=== PATIENT | male | born 1990 | race Caucasian/White ===

== ENCOUNTER 2017-12-28 13:14 | Observation (INO) | payer OTHER ==
[2017-12-28] MEDS ORDERED: ONDANSETRON 4 MG/2 ML VIAL IVP ONE (13:48)
[2017-12-28] MEDS ORDERED: ONDANSETRON 4 MG/2 ML VIAL ONE ×2 (13:49→16:49)
--- NOTE | 2017-12-28 13:54 | EDPHY ---
General - History Smoking Status: Never smoked Time Seen by Provider: 12/28/17 13:50 Narrative: CHIEF COMPLAINT: Rectal pain, testicular pain HISTORY OF PRESENT ILLNESS: Patient complains of 6 days history of testicular pain and 6 days history of rectal pain. This is a severe rectal pain and rcor-cc-[id number] testicular pain. They have been constant duration. Worse with Valsalva and bowel movement. The left testicular pain worsened this morning and now radiates down the leg. He has had no constipation. One episode of diarrhea. No bloody emesis. No nausea or vomiting. Some painful urination at time. No difficulty urinating. No blood in the urine. No flank pain. No upper abdominal pain. Denies inserting anything into the anus and denies any anal intercourse. He presented to Urgent Care earlier today with a performed a rectal exam and urinalysis. They were concerned for possibility of rectal abscess, thus they sent him to our facility for higher level of care. No other associated complaints or modifying factors. REVIEW OF SYSTEMS: Ten systems reviewed and are negative unless otherwise noted in the HPI PCP: Dr. López SPECIALISTS: None PAST MEDICAL HISTORY: Anxiety. Questionable diagnosis of irritable bowel syndrome PAST SURGICAL HISTORY: No recent surgeries. Colonoscopy within the past year with benign polyps. SOCIAL HISTORY: Nonsmoker. Occasional marijuana use. No alcohol use. Lives and works here locally. Accompanied by his spouse FAMILY HISTORY: Noncontributory EXAMINATION General Appearance: Alert, no distress. Lying on his right side. Head: normocephalic, atraumatic Eyes: Pupils equal and round, no conjunctival pallor or injection ENT, Mouth: Mucous membranes moist Neck: Normal inspection, supple, non-tender Respiratory: Lungs are clear to auscultation. No wheeze, rhonchi or crackles Cardiovascular: Regular rate and rhythm. No murmur Gastrointestinal: Abdomen is soft and nondistended. No tenderness in any quadrant. No tympany. No rigidity. No guarding. No CVA tenderness. Rectal exam: No external hemorrhoids or lesions. Normal tone. No mass. No bleeding. exam: Circumcised penis. No drainage from the meatus. No balanitis. Normal appearing testicles with symmetric cremasteric. No fluctuance. No crepitus. No necrosis. Neurological: A&O, nonfocal, normal gait Skin: Warm and dry, no rash. No petechiae or purpura. No cellulitis Extremities: Nontender, no pedal edema Psychiatric: Mood and affect normal DIFFERENTIAL DIAGNOSES: Including but not limited to rectal abscess, hemorrhoids, MDM: 1:50 p.m. Rectal testicular pain of 6 days duration. Abdominal exam is benign. He cannot tolerated digital rectal exam at this time, thus I have ordered pain medication 1st. I ordered an ultrasound of the testicles prior to my examination rule out torsion, although I have a very low clinical suspicion of this. He has no other abnormality on exam. Laboratory studies been ordered. IV is being placed with IV medication for pain. 2:50 p.m. Notified by radiologist Dr. Reed. Normal appearance on ultrasound of testicles. No evidence of torsion. Symmetric blood flow. I have re-evaluated the patient. He still complained of significant pain at this time. I have ordered CT scan of the pelvis and further pain medication. 3:10 p.m. Case discussed with radiologist Dr. Reed. There is perirectal abscess on the patient's left side as documented. No other acute findings. I have notified the patient and paged the general surgeon. He is NPO of all solids today. He did have water intake less than 2 hr ago. 3:20 p.m. I discussed the case with Dr. Mckeon. He will come evaluate the patient in the emergency department. 3:[address] Mckeon is in the department to evaluate the patient. We have reviewed the CT scan and his laboratory studies together. We discussed surgical intervention and that the patient be admitted to his service. He is admitted to his service in stable condition. Further IV fluid has been ordered at his request. SUPERVISION: Patient was independently examined, but I discussed the case with my secondary supervising physician Dr. Zuñiga ([facility]) Medical Decision Making: I did not see this patient while he was in the emergency department. However his care was discussed with the PA while the patient was in the department. I agree with treatment plan and management (Clive Zuñiga) - Objective Vital Signs: Initial Vital Signs Temperature (C) 98.6 F 12/28/17 13:17 Heart Rate 79 12/28/17 13:17 Respiratory Rate 20 12/28/17 13:17 Blood Pressure 118/89 H 12/28/17 13:17 O2 Sat (%) 97 12/28/17 13:17 O2 Delivery Mode Room Air Allergies/Adverse Reactions: No Known Allergies Allergy (Verified 12/28/17 13:16) Home Medications: Medication Instructions Recorded Acetaminophen [Tylenol 325mg (*)] 325 - 650 mg PO Q6 PRN 12/28/17 Propranolol HCl [Inderal 10mg (*)] 10 mg PO DAILY PRN 12/28/17 Laboratory Results: Laboratory Results 12/28/17 14:00 12/28/17 14:00 Medications Given: Acetaminophen (Tylenol) 1,000 mg PO Q8H SYLVIA Stop: 06/26/18 16:59 Last Admin: 12/29/17 03:35 Dose: Not Given Lactated Ringer's (Lr) 1,000 mls @ 100 mls/hr IV CONT SYLVIA Stop: 12/29/17 16:59 Last Admin: 12/29/17 05:17 Dose: 1,000 mls Ondansetron HCl (Zofran) 4 mg IVP Q4HRS PRN PRN Reason: Nausea/Vomiting, Can't Take PO Stop: 06/26/18 16:47 Last Admin: 12/28/17 20:03 Dose: 4 mg Psyllium Hydrophilic Mucilloid (Metamucil/Konsyl) 2 each PO BID SYLVIA Stop: 06/26/18 20:59 Last Admin: 12/28/17 20:45 Dose: 2 each Discontinued Medications Ertapenem (Invanz) 1 gm IV EDNOW ONE PRN Reason: Protocol Stop: 12/28/17 15:20 Last Admin: 12/28/17 15:31 Dose: 1 gm Hydromorphone HCl (Dilaudid) 1 mg IVP EDNOW ONE Stop: 12/28/17 14:52 Last Admin: 12/28/17 15:53 Dose: 1 mg Sodium Chloride (Ns) 1,000 mls @ 0 mls/hr IV EDNOW ONE; Wide Open PRN Reason: Protocol Stop: 12/28/17 14:52 Last Admin: 12/28/17 15:30 Dose: 1,000 mls Sodium Chloride (Ns) 1,000 mls @ 0 mls/hr IV EDNOW ONE; Wide Open PRN Reason: Protocol Stop: 12/28/17 15:46 Last Admin: 12/28/17 16:19 Dose: 1,000 mls Lactated Ringer's (Lr) 1,000 mls @ 0 mls/hr IV ONCE ONE PRN Reason: Per Protocol Stop: 12/28/17 16:38 Last Admin: 12/28/17 22:29 Dose: Not Given Midazolam HCl (Versed) 2 mg IVP ONCALL ONE Stop: 12/28/17 16:27 Last Admin: 12/28/17 17:08 Dose: 2 mg Morphine Sulfate (Morphine) 4 mg IVP EDNOW ONE Stop: 12/28/17 13:49 Last Admin: 12/28/17 13:57 Dose: 4 mg Morphine Sulfate (Morphine) 4 mg IVP EDNOW ONE Stop: 12/28/17 14:23 Last Admin: 12/28/17 14:27 Dose: 4 mg Ondansetron HCl (Zofran) 4 mg IVP EDNOW ONE Stop: 12/28/17 13:49 Last Admin: 12/28/17 13:56 Dose: 4 mg Departure - Departure Disposition: [facility] Clinical Impression: Caty-rectal abscess Condition: Good
[2017-12-28 14:12] LABS: PLATELET COUNT 224 10^3/uL (150-400)
[2017-12-28] MEDS ORDERED: NS 1,000 ML IV ONE ×2 (14:51→15:45)
[2017-12-28] MEDS ORDERED: HYDROmorphONE/DILAUDID 1 MG/ML INJ IVP ONE (14:51)
[2017-12-28] MEDS ORDERED: IOPAMIDOL (ISOVUE-300) 100 ML BTL ONE (14:52)
[2017-12-28] MEDS ORDERED: ERTAPENEM 1 GM VIAL IV ONE (15:19)
[2017-12-28] MEDS ORDERED: HYDROmorphONE/DILAUDID 2 MG/ML INJ ONE ×2 (15:44→16:48)
[2017-12-28] MEDS ORDERED: ONDANSETRON 4 MG/2 ML VIAL IVP PRN ×2 (16:26→16:48)
[2017-12-28] MEDS ORDERED: fentaNYL 100 MCG/2 ML INJ IVP PRN (16:26)
[2017-12-28] MEDS ORDERED: MIDAZOLAM 2 MG/2 ML VIAL IVP ONE (16:26)
[2017-12-28] MEDS ORDERED: HYDROmorphONE/DILAUDID 2 MG/ML INJ IVP PRN (16:26)
[2017-12-28] MEDS ORDERED: ALBUTEROL 3 ML DEYVIAL IH PRN (16:26)
[2017-12-28] MEDS ORDERED: NALOXONE HCL 0.4 MG/ML INJ IVP PRN (16:26)
--- NOTE | 2017-12-28 16:28 | PDANEPAE ---
ANE History of Present Illness Perirectal abscess ANE Past Medical History - Cardiovascular History Hx Hypertension: No - Pulmonary History Hx Oxygen in Use at Home: No - Endocrine History Hx Diabetes: No ANE Review of Systems Review of Systems: - Exercise capacity Exercise capacity: >=4 METS ANE Patient History - Allergies Allergies/Adverse Reactions: No Known Allergies Allergy (Verified 12/28/17 13:16) - Home Medications Home Medications: Acetaminophen [Tylenol 325mg (*)] 325 - 650 mg PO Q6 PRN 12/28/17 [Last Taken 09:00] Propranolol HCl [Inderal 10mg (*)] 10 mg PO DAILY PRN 12/28/17 [Last Taken 1 Week Ago ~12/21/17] - Smoking Hx Smoking Status: Never smoked ANE Labs/Vital Signs - Labs Result Diagrams: 12/28/17 14:00 12/28/17 14:00 - Vital Signs Blood Pressure: 125/78 Heart Rate: 89 Respiratory Rate: 16 O2 Sat (%): 100 Height: 177.8 cm Weight: 79.379 kg ANE Physical Exam - Airway Neck exam: FROM Mallampati Score: Class 2 - Pulmonary Pulmonary: clear to auscultation - Cardiovascular Cardiovascular: regular rate and rhythym - ASA Status ASA Status: II ANE Anesthesia Plan Anesthesia Plan: GA w LMA
[2017-12-28] MEDS ORDERED: LR 1,000 ML IV ONE (16:37)
[2017-12-28] MEDS ORDERED: PROPOFOL 200 MG/20 ML VIAL ONE (16:46)
[2017-12-28] MEDS ORDERED: HYDROmorphone HCL/NS 0.5 MG/ML SYR IVP PRN (16:48)
[2017-12-28] MEDS ORDERED: RANITIDINE 50 MG/2 ML VIAL ONE (16:49)
[2017-12-28] MEDS ORDERED: DEXAMETHASONE 4 MG/ML VIAL ONE (16:49)
--- NOTE | 2017-12-28 16:54 | GDS ---
[f rep st] TRANSFER SUMMARY ADMITTING DIAGNOSIS: Anterior perirectal abscess. HISTORY: The patient is a 27-year-old male. He recalls passing hard stool in the last 2 weeks. He had onset of pain 6 days ago, which became dramatically worse today, prompting his presentation for evaluation in the emergency room. Note is made that he has irritable bowel syndrome and had a colonoscopy and upper endoscopy approximately 1 month ago. Benign polyps were identified. He denies rectal manipulation. He has had a fissure in the past. There is no history of Crohn disease. PAST MEDICAL HISTORY: He smoked from ages 19 to 23 at a half pack a day. He does drink approximately 1-2 drinks per month. He has no known drug allergies. He does take propranolol 10 mg p.r.n. anxiety. He has only had wisdom tooth extraction in addition to the upper and lower endoscopy mentioned above. No history of rheumatic fever, tuberculosis, hepatitis, or transfusions. HIV is negative. REVIEW OF SYSTEMS: He wears lenses for visual correction. As mentioned above, he has had a rectal fissure in the past. No limits on his activities and no history of steroid use. FAMILY HISTORY: His mother is 61 years old, alive and well. His father is 56; he has had multiple coronary stents and those were first placed when he was in his late 40s. Patient has an older sister who is 34 years old and obese. There is no history of bleeding disorders, clotting disorders, difficulty with anesthesia in the patient's family. PHYSICAL EXAMINATION: GENERAL: He is awake and alert, in no acute distress. HEENT: His skull is normocephalic and atraumatic. NEUROLOGIC: He is oriented x3. There are no focal lateralizing neurologic findings. NECK: No carotid bruits. Thyroid not enlarged. No cervical, supraclavicular, axillary, or inguinal lymphadenopathy. BACK: Unremarkable. LUNGS: Clear to auscultation. CARDIAC: S1, S2 normal. No split of S2. Without murmurs, rubs, or gallops. ABDOMEN: Soft and nontender. Rectal examination is not performed. DIAGNOSTICS: CT does show an anterior perirectal abscess. His white count is 10,000 with 78% neutrophils. PLAN: I will plan to examine him under anesthesia, I and D his perirectal abscess, and perform a fistulotomy if a fistulous tract is found to be present. The patient understands the complications of recurrence and/or transient fecal incontinence. He understands he may need a repair of his sphincter if he does have the problems with the transient fecal incontinence. He and his understand the procedure as presented and agree to proceed as outlined. /[id number]/MODL MTDD
--- NOTE | 2017-12-28 17:28 | POSTOPPROG ---
Post Op Note Date of Operation: 12/28/17 Surgeon: Kaleb Mckeon Pre-op Diagnosis: anterior perirectal abscess Post-op Diagnosis: abscess, hemorrhoids Indication: anterior perirectal abscess Findings: rectal purulence ( cultured) without obvious source Inf/Abcess present in the surg proc area at time of surgery?: Yes Depth: Deep Incisional (Fascial) EBL: Minimal Total fluids administered: 500 Complications: none
--- NOTE | 2017-12-28 17:35 | POSTANESTH ---
Post Anesthetic Evaluation Cardiovascular Status: Normal, Stable Respiratory Status: Normal, Stable Level of Consciousness/Mental Status: Mildly Sleepy, Arousable Pain Control: Adequate, Prn Tx Ordered Nausea/Vomiting Control: Adequate, Prn Tx Ordered
--- NOTE | 2017-12-28 17:49 | GOP ---
[f rep st] OPERATIVE REPORT DATE OF OPERATION: SURGEON: Kaleb Mckeon MD PREOPERATIVE DIAGNOSIS: Anterior perirectal abscess. POSTOPERATIVE DIAGNOSIS: Abscess of uncertain location. PROCEDURE PERFORMED: Examination under anesthesia. FINDINGS: Abscess ( that drained spontaneously into the rectum ) without obvious cavity DESCRIPTION OF PROCEDURE: The patient is placed on the operating table in supine position. After induction of adequate general endotracheal anesthesia, he is placed in lithotomy position. Perineum is carefully clipped, prepped, and draped. A surgical time-out was carried out and agreed to by all members of the operative staff. An anoscope was carefully passed. Purulent fluid is identified in the rectum, but no distinct abscess source can be palpated or identified. The purulence was carefully cultured. I opted not to make an incision without an obvious site to drain. A perineal pack is placed. He is transferred to recovery in stable and satisfactory condition. He will be treated with IV antibiotics. Further surgery may become necessary. /[id number]/MODL MTDD
[2017-12-28] MEDS: LR 1,000 ML IV SCH (20:03)
[2017-12-28] MEDS: PSYLLIUM METAMUCIL 1 PKT PO SCH (20:45)
[2017-12-28] MEDS: ACETAMINOPHEN 500 MG TAB PO SCH (22:28)
[2017-12-29] MEDS: ACETAMINOPHEN 500 MG TAB PO SCH ×3 (03:35→18:32)
[2017-12-29 04:31] LABS: PLATELET COUNT 229 10^3/uL (150-400)
[2017-12-29] MEDS: LR 1,000 ML IV SCH (05:17)
[2017-12-29] MEDS ORDERED: HYDROCODONE/APAP 5/325 TAB PO PRN (09:19)
[2017-12-29] MEDS: PSYLLIUM METAMUCIL 1 PKT PO SCH ×2 (09:25→20:49)
[2017-12-29] MEDS: ERTAPENEM 1 GM VIAL IV SCH (09:26)
--- NOTE | 2017-12-29 10:01 | ASMTLACE ---
LACE Length of stay for Answers: 1 day current admission Acuity / Level of Answers: No Care: Did the patient have an inpatient admission? # of Emergency department Answers: 1-2 visits in the last 6 months Score: 2 Date Signed: 12/29/2017 10:01 AM Electronically Signed By:Ayse Diaz LCSW
--- NOTE | 2017-12-29 10:23 | ASMTCMCOM ---
CM Note CM Note Notes: Pt. is a 27-year-old man admitted for a blake-rectal abscess. Pt. had surgery w/ Dr. Mckeon. Hx. IBS, benign polyps, and smoking. Pt. currently on IV antibiotics, but likely will not need IVs at d/c per RN. Anticipate independent d/c when ready. CM available should d/c POC change. Date Signed: 12/29/2017 10:22 AM Electronically Signed By:Ayse Diaz LCSW
--- NOTE | 2017-12-29 10:37 | SOAPPROG ---
SOAP Progress Note Assessment/Plan: Assessment: s/p EUA, spontaneous drainage anterior blake-rectal abscess per Dr. Mckeon appears clinically stable post op with mild leukocytosis Plan:continue IV antibiotics/stop IV fluids/advance diet increase activity transition to po antibiotics next 24-48 hours and complete course of treatment at home 12/29/17 10:35 Subjective: feeling better/able to void post op has not tried to eat since surgery Objective: Vital Signs Temp Pulse Resp BP Pulse Ox 36.8 C 89 16 110/73 95 12/29/17 09:24 12/29/17 09:16 12/29/17 09:16 12/29/17 09:16 12/29/17 09:16 Microbiology 12/28/17 17:12 Gram Stain - Final Buttock - Eswab Laboratory Results 12/29/17 04:16 12/28/17 12/29/17 12/30/17 05:59 05:59 05:59 Intake Total 2560 Balance 2560 Physical Exam - Physical Exam General Appearance: mild distress Respiratory: lungs clear Cardiac/Chest: regular rate, rhythm, tachycardia Abdomen: non-tender, soft Male Genitalia: deferred Rectal: deferred Neuro/Psych: alert, normal mood/affect, oriented x 3 ICD10 Worksheet Patient Problems: Problems Problem Status Onset Blake-rectal abscess Acute
[2017-12-29 12:28] LABS: GC AMPLIFICATION GENPROBE NEGATIVE (NEGATIVE)
[2017-12-29] MEDS: SENNOSIDES/DOCUSATE SODIUM TAB PO SCH ×2 (14:19→20:49)
[2017-12-29 15:32] VITALS: RESP 16
[2017-12-30] MEDS: ACETAMINOPHEN 500 MG TAB PO SCH ×2 (00:21→08:24)
[2017-12-30 04:53] LABS: PLATELET COUNT 237 10^3/uL (150-400)
[2017-12-30 05:30] VITALS: BP 109/59; PULSE 77; TEMP 97.8; O2SAT 95
--- NOTE | 2017-12-30 07:27 | SOAPPROG ---
SOAP Progress Note Assessment/Plan: 12/30/17 07:24 PAD#2 & POD#2 Assessment: Doing quite well. Eating and moving bowels. WBC now normal. C&S still pending. Gram Positive organisms seen Plan: Change to Augmentin Tx as out patient Subjective: No complaints. Notes stool soft Objective: Vital Signs Temp Pulse Resp BP Pulse Ox 36.6 C 77 16 109/59 L 95 12/30/17 05:29 12/30/17 05:29 12/30/17 05:29 12/30/17 05:29 12/30/17 05:29 Microbiology 12/28/17 17:12 Gram Stain - Final Buttock - Eswab Laboratory Results 12/30/17 04:35 12/29/17 12/30/17 12/31/17 05:59 05:59 05:59 Intake Total 2560 1250 Balance 2560 1250 - Time Spent With Patient Time Spent With Patient: 15 - Pending Discharge Pending Discharge Within 24 Hours: Yes Pending Discharge Date: 12/30/17 Pending Discharge Time: 11:00 Physical Exam - Physical Exam General Appearance: WD/WN, alert, no apparent distress Respiratory: lungs clear Cardiac/Chest: regular rate, rhythm Abdomen: normal bowel sounds, non-tender, soft Male Genitalia: deferred Rectal: deferred Skin: normal color, warm/dry Neuro/Psych: no motor/sensory deficits, alert, normal mood/affect, oriented x 3 ICD10 Worksheet Patient Problems: Problems Problem Status Onset Caty-rectal abscess Acute
[2017-12-30] MEDS: PSYLLIUM METAMUCIL 1 PKT PO SCH (08:23)
[2017-12-30] MEDS: SENNOSIDES/DOCUSATE SODIUM TAB PO SCH (08:23)
[2017-12-30] MEDS: ERTAPENEM 1 GM VIAL IV SCH (08:24)
--- NOTE | 2017-12-30 09:20 | ASMTCMCOM ---
CM Note CM Note Notes: Per RN, Pt. continues to be independent. D/c today w/ no needs. Date Signed: 12/30/2017 09:19 AM Electronically Signed By:Ayse Diaz LCSW
--- NOTE | 2017-12-30 09:52 | GDS ---
[f rep st] DISCHARGE SUMMARY DIAGNOSIS: Perirectal abscess. CONDITION ON DISCHARGE: Improved. SURGERIES: Examination under anesthesia. DISPOSITION: Home. No restrictions on his diet, though I suggest he avoid constipating foods such as bananas, rice, applesauce, and cheese, and that he sit upright for 2 hours after meals because of reflux and avoid going to bed within 2-3 hours of eating in the evening because of reflux. He will continue his home medication of propranolol, which he takes for occasional anxiety. He will use Augmentin 875 mg twice a day for the next 7 days. He will use Tylenol for pain. He understands he has probably a 30% chance of recurrence, and now that he understands what a perirectal abscess was like, he promises to return earlier rather than later if symptoms reoccur. He is to watch for signs of C difficile because of antibiotic use. He is to continue his Metamucil 2 packets twice a day for the next 30 days. Because of his irritable bowel syndrome, I suggest he continue his Metamucil jail, though we may be able to decrease the dose. He will follow up with Dr. Brian Lama, Maxx Menon, or Karina Garza in approximately 2 weeks. HOSPITAL COURSE: The patient was admitted with a CT consistent with an anterior perirectal abscess. At surgery, a large amount of purulent material was found in the rectum (subsequently found to be gram-positive cocci and rods) , but no distinct abscess cavity could be identified. An incision was not made. He has done well. His white count has recovered from 10,000 to 7000 with his percentage of neutrophils dropping from 80 to the high 40 percentages. He will be continued on Augmentin, as mentioned above. He has no difficulty voiding or moving his bowels. He has been started on Metamucil 2 tablespoons twice a day, which has done wonders for softening his stool. /[id number]/MODL MTDD
== END 2017-12-30 09:10 | disposition home or self-care (01) ==
LOC: F1N 16:55
PROVIDERS: ADMIT Surgery; ATTEND Surgery
PROC: 0DJD8ZZ Inspection of Lower Intestinal Tract, Via Natural or Artificial Opening Endoscopic (ICD-10-PCS; principal; 2017-12-28 16:30)
DX: K61.1 Rectal abscess (principal); K58.9 Irritable bowel syndrome, unspecified; F41.9 Anxiety disorder, unspecified
CPT/HCPCS: 45990; 74177; 76870; 96374; 96375; 99285; G0378; J1100; J1170; J1335; J2250; J2270; J2405; J2704; J2780; Q9967

== ENCOUNTER 2018-11-26 11:41 | Emergency (ER) | payer OTHER ==
--- NOTE | 2018-11-26 12:03 | EDPHY ---
H & P Time Seen by Provider: 11/26/18 11:53 HPI/ROS: CHIEF COMPLAINT: Rectal fullness HISTORY OF PRESENT ILLNESS: Patient was admitted 1 year ago with similar symptoms but he said he waited a lot longer, almost a week, and was in the hospital for about 3 days. Presents today with 3 days of rectal fullness. Associated with the feeling of pain in his bladder when he urinates. No dysuria or hematuria. No diarrhea or constipation. Said is a little bit more sore on the left side than the right. No fevers or chills. REVIEW OF SYSTEMS: Eye: no change in vision ENT: no sore throat Cardiac: no chest pain or syncope Pulmonary: no cough or SOB Abdomen: HPI Musculoskeletal: no back pain Skin: no rash Neuro: no headache Constitutional: no fever : no urinary symptoms A comprehensive 10 point review of systems is otherwise negative aside from elements mentioned in the history of present illness. PAST MEDICAL HISTORY: Anxiety and previous perirectal abscess Social history: , present in the room General Appearance: Alert and conversant, cooperative. Eyes: No scleral icterus. ENT, Mouth: Normal mucous membranes. Respiratory: Normal respiratory effort, breath sounds equal, lungs are clear to auscultation. Cardiovascular: Regular rate and rhythm. Gastrointestinal: Abdomen is soft and non tender. Rectal exam shows no fluctuance or induration. No hemorrhoid. Painful rectal examination but no fullness. Neurological: Alert, face symmetric, normal motor and sensory in extremities. Skin: Warm and dry, no rashes. Musculoskeletal: No peripheral edema. Psychiatric: Not agitated. Emergency Department course/MDM: Plan for pelvis CT with IV contrast. Last year he had similar symptoms with a relatively benign external exam but had abscess discovered on CT. CT discussed and consented. 1402: CT per Dr. Reese shows 12 mm perirectal abscess on the rectal wall on the right side. Discussed with Dr. Garza who recommends oral Augmentin will see him in the office at 11:45 a.m. On Tuesday. The patient says that he thinks this is reasonable. He has asked about refilling his propranolol for anxiety he is given referral to primary care. Smoking Status: Never smoked Constitutional: Initial Vital Signs Temperature (C) 36.5 C 11/26/18 11:50 Heart Rate 78 11/26/18 11:50 Respiratory Rate 16 11/26/18 11:50 Blood Pressure 110/83 H 11/26/18 11:50 O2 Sat (%) 97 11/26/18 11:50 O2 Delivery Mode Room Air Allergies/Adverse Reactions: No Known Allergies Allergy (Verified 12/28/17 13:16) Home Medications: Medication Instructions Recorded Propranolol Sr 11/26/18 Medical Decision Making - Diagnostics Imaging Results: Imaging Impressions Pelvis CT 11/26/18 12:31 Impression: Small low-attenuation area on the right side either within the rectal wall or in the immediate perirectal soft tissues consistent with a small abscess. Results called and discussed with Victoriano Stevens MD on November 26, 2018 at 1353 hours. - Data Points Laboratory Results: Laboratory Results 11/26/18 12:20 11/26/18 12:20 11/26/18 11/26/18 11/26/18 12:27 12:20 12:20 WBC 5.50 10^3/uL 10^3/uL (3.80-9.50) RBC 5.39 10^6/uL 10^6/uL (4.40-6.38) Hgb 16.3 g/dL g/dL (13.7-17.5) POC Hgb 17.0 gm/dL gm/dL (13.7-17.5) Hct 47.5 % % (40.0-51.0) POC Hct 50 % % (40-51) MCV 88.1 fL fL (81.5-99.8) MCH 30.2 pg pg (27.9-34.1) MCHC 34.3 g/dL g/dL (32.4-36.7) RDW 12.2 % % (11.5-15.2) Plt Count 255 10^3/uL 10^3/uL (150-400) MPV 9.7 fL fL (8.7-11.7) Neut % (Auto) 51.7 % % (39.3-74.2) Lymph % (Auto) 35.3 % % (15.0-45.0) [place] % (Auto) 7.5 % % (4.5-13.0) Eos % (Auto) 4.9 % % (0.6-7.6) Baso % (Auto) 0.4 % % (0.3-1.7) Nucleat RBC Rel Count 0.0 % % (0.0-0.2) Absolute Neuts (auto) 2.85 10^3/uL 10^3/uL (1.70-6.50) Absolute Lymphs (auto) 1.94 10^3/uL 10^3/uL (1.00-3.00) Absolute Monos (auto) 0.41 10^3/uL 10^3/uL (0.30-0.80) Absolute Eos (auto) 0.27 10^3/uL 10^3/uL (0.03-0.40) Absolute Basos (auto) 0.02 10^3/uL 10^3/uL (0.02-0.10) Absolute Nucleated RBC 0.00 10^3/uL 10^3/uL (0-0.01) Immature Gran % 0.2 % % (0.0-1.1) Immature Gran # 0.01 10^3/uL 10^3/uL (0.00-0.10) POC Sodium 143 mEq/L mEq/L (135-145) Sodium 139 mEq/L mEq/L (135-145) POC Potassium 3.8 mEq/L mEq/L (3.3-5.0) Potassium 4.2 mEq/L mEq/L (3.5-5.2) POC Chloride 106 mEq/L mEq/L (97-110) Chloride 108 mEq/L mEq/L (97-110) Carbon Dioxide 21 mEq/l L mEq/l (22-31) POC Total CO2 23 mEq/L mEq/L (22-31) Anion Gap 10 mEq/L mEq/L (6-14) POC BUN 8 mg/dL mg/dL (7-23) BUN 10 mg/dL mg/dL (7-23) Creatinine 0.8 mg/dL mg/dL (0.7-1.3) POC Creatinine 0.9 mg/dL mg/dL (0.7-1.3) Estimated GFR > 60 Glucose 95 mg/dL mg/dL (70-100) POC Glucose 94 mg/dL mg/dL (70-100) Calcium 9.9 mg/dL mg/dL (8.5-10.4) Point of Care Test Results: Chemistry 11/26/18 12:27 POC Sodium 143 mEq/L mEq/L (135-145) POC Potassium 3.8 mEq/L mEq/L (3.3-5.0) POC Chloride 106 mEq/L mEq/L (97-110) POC Total CO2 23 mEq/L mEq/L (22-31) POC BUN 8 mg/dL mg/dL (7-23) POC Creatinine 0.9 mg/dL mg/dL (0.7-1.3) POC Glucose 94 mg/dL mg/dL (70-100) ISTAT H&H 11/26/18 12:27 POC Hgb 17.0 gm/dL gm/dL (13.7-17.5) POC Hct 50 % % (40-51) Departure - Departure Disposition: Home, Routine, Self-Care Clinical Impression: Caty-rectal abscess Condition: Good Instructions: Amoxicillin/Clavulanate Potassium (By mouth) Referrals: Stevie Curtis DO [Doctor of Osteopathy] - As per Instructions Pablo Ponce DO [Doctor of Osteopathy] - As per Instructions Elda Garza MD [Medical Doctor] - 11/28/18 11:45 am
[2018-11-26 12:30] LABS: PLATELET COUNT 255 10^3/uL (150-400)
[2018-11-26] MEDS ORDERED: IOPAMIDOL (ISOVUE-300) 100 ML BTL ONE (12:54)
[2018-11-26 13:46] VITALS: BP 112/73
[2018-11-26] MEDS ORDERED: AMOXICILLIN/CLAVULANATE POT 875/125 MG TAB PO ONE (14:02)
== END 2018-11-26 14:30 | disposition home or self-care (01) ==
DX: K61.1 Rectal abscess (principal)
CPT/HCPCS: 82435-PO; 82565-PO; 82947-PO; 84132-PO; 84295-PO; 84520-PO; 85014-ER; Q9967

== ENCOUNTER → 2018-12-27 | Outpatient (CLI) | payer OTHER | LOC: FIMAGING 11:40 | PROVIDERS: ATTEND Surgery | DX: N50.812 Left testicular pain (principal); R10.32 Left lower quadrant pain; R30.0 Dysuria; R35.8 Other polyuria ==